=== PATIENT | male | born 1975 | race Hispanic/Latino ===

== ENCOUNTER 2021-06-16 08:01 | Emergency (ER) | payer BC ==
[~2021-06-16] VITALS: Ht 182.9 cm; Wt 108.9 kg
== END 2021-06-16 10:06 | disposition home or self-care (01) ==
LOC: ER 08:10
DX: M25.511 Pain in right shoulder (principal); S46.911A Strain of unspecified muscle, fascia and tendon at shoulder and upper arm level, right arm, initial encounter; R42 Dizziness and giddiness
CPT/HCPCS: 99282